=== PATIENT | female | born 1950 | race Two or more races ===

== ENCOUNTER 2016-12-23 06:02 | Day surgery (SDC) | payer MEDICARE, OTHER ==
[~2016-12-23] VITALS: Ht 147.3 cm; Wt 76.3 kg
[~2016-12-23 06:02] MED LIST: AMLO2.5T2; ASPI-650; HYDR25TA6
[2016-12-23 07:19] VITALS: Ht 147.3 cm; Wt 76.3 kg
[2016-12-23] MEDS ORDERED: [UNRECOGNIZED DRUG - REMARK] (07:24)
[2016-12-23] MEDS ORDERED: [UNRECOGNIZED DRUG - REMARK] (07:24)
[2016-12-23] MEDS ORDERED: BP MED UNKNOWN (07:24)
[2016-12-23] MEDS ORDERED: [UNRECOGNIZED DRUG - OTHER] (07:24)
[2016-12-23] MEDS ORDERED: PROPOFOL 40 ML ONE (07:43)
--- NOTE | 2016-12-23 08:03 | OPPN ---
Date/Time of Note Date/Time of Note DATE: 12/23/16 TIME: 07:38 Operative Report Preoperative Diagnosis Screening Postoperative Diagnosis Diverticulosis of the colon Internal hemorrhoids The colon neoplasm was identified Operation/Procedure Performed Colonoscopy Surgeon see signature line tax accounting assistant None Anesthesia: MAC Estimated blood loss: none Transfusion Required none Specimen None Grafts/Implants none Complications none ELLA BERMUDEZ MD Dec 23, 2016 08:03
[2016-12-23 08:25] VITALS: BP 115/60; RESP 14
--- NOTE | 2016-12-23 08:48 | GILP ---
DATE OF PROCEDURE: 12/23/2016 SURGEON: Shellie Niño MD. PROCEDURE PERFORMED: Colonoscopy. PREOPERATIVE DIAGNOSIS: Screening colonoscopy. POSTOPERATIVE DIAGNOSES: 1. Colonoscopy all the way to the cecum. 2. Diverticulosis of the colon. 3. Internal hemorrhoids. 4. No colon neoplasm was identified. INDICATION: Ms. Mirian Rocha is a 66-year-old female patient who was scheduled for screening colonoscopy. The procedure and possible complications were well explained to the patient. The patient understood and consented to the procedure. DESCRIPTION OF PROCEDURE: Under influence of anesthesia, the colonoscope was carefully introduced in the rectum. Under direct vision, it was advanced all the way to the cecum. FINDINGS: The patient had diverticulosis of the colon. She also had internal hemorrhoids. No colon neoplasm was identified. She tolerated the procedure very well, and there was no complication from the procedure. At the end of procedure, she was awake with stable vital signs and she was discharged home in the care of her family. IMPRESSION: 1. Colonoscopy all the way to the cecum. 2. Diverticulosis of the colon. 3. Internal hemorrhoids. 4. No colon neoplasm was identified. PLAN: Next screening colonoscopy in 10 years. Dictated By: MD SOLITARIO Alexis/loren/leyla /Document#: [id number]
== END 2016-12-23 15:32 | disposition home or self-care (01) ==
LOC: GIL 06:02
PROVIDERS: ATTEND Internal Medicine Gastroenterology
DX: Z12.11 Encounter for screening for malignant neoplasm of colon (principal); K57.30 Diverticulosis of large intestine without perforation or abscess without bleeding; K64.8 Other hemorrhoids; E11.9 Type 2 diabetes mellitus without complications; I10 Essential (primary) hypertension; E78.5 Hyperlipidemia, unspecified; J45.909 Unspecified asthma, uncomplicated
CPT/HCPCS: 82962